=== PATIENT | female | born 1945 | race Caucasian/White ===

== ENCOUNTER → 2017-01-24 | Outpatient (CLI) | payer OTHER ==
[~2017-01-24] MED LIST: ACET325T30 PO; ASCO500T3 PO; ASPI-461 PO; CHOL20005 PO; LABE100T16 PO; LBT/100 PO; LEVE250T PO; LEVE500T13 PO; LEVO25TA5 PO; LORA-741 PO; MULTTAB58 PO; OMEG10007 PO; SERT50TA PO
[2017-01-24 18:15] LABS: BLOOD UREA NITROGEN 22 mg/dl (7-18); BUN/CREATININE RATIO 20.2 (10-20); CALCIUM 9.4 mg/dl (8.5-10.1); CARBON DIOXIDE 27 mmol/L (21-32); CHLORIDE 108 mmol/L (98-107); GLUCOSE 116 mg/dl (70-99); POTASSIUM 4.4 mmol/L (3.5-5.1); SODIUM 140 mmol/L (136-145)
[2017-01-24 18:18] LABS: CHOLESTEROL 273 mg/dl (0-200); CHOLESTEROL/HDL RATIO 5.9; HDL CHOLESTEROL 46 mg/dl; LDL CHOLESTEROL CALCULATED 185 mg/dl; TRIGLYCERIDES 210 mg/dl (0-150); VERY LOW DENSITY LIPOPROT CALC 42 mg/dl
== END | disposition home or self-care (01) ==
LOC: C.LABPVFM 13:36
PROVIDERS: ATTEND Nurse Practitioner
DX: I10 Essential (primary) hypertension (principal); E78.00 Pure hypercholesterolemia, unspecified

== ENCOUNTER → 2017-02-28 | Outpatient (CLI) | payer OTHER ==
--- NOTE | 2017-02-28 16:09 | MAMMOGRAPHY REPORT ---
BILATERAL DIGITAL SCREENING MAMMOGRAM WITH CAD: 02/28/2017 CLINICAL HISTORY: Routine screening. Patient has no complaints. TECHNIQUE: Bilateral CC, MLO and repeat left MLO views were obtained. Current study was also evaluat ed with a Computer Aided Detection (CAD) system. COMPARISON: No prior exams were available for comparison. BREAST COMPOSITION: The tissue of both breasts is heterogeneously dense, which may obscure small mas ses. 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 No suspicious spiculat ed or irregular mass, architectural distortion or cluster of suspicious microcalcifications is seen. IMPRESSION: ACR BI-RADS CATEGORY 1: NEGATIVE There is no mammographic evidence of malignancy. A 1 year screening mammogram is recommended. The pa tient will receive written notification of the results. Approximately 10% of breast cancers are not detected with mammography. A negative mammographic report should not delay biopsy if a clinically suggestive mass is present. Estefania Day M.D. ay/:02/28/2017 15:15:24 Manager Research: Clementine SALAZAR(R)(M), [facility] letter sent: Normal 1/2 BI-RADS Code: ACR BI-RADS Category 1: Negative
== END | disposition home or self-care (01) ==
LOC: C.MAMM 12:42
PROVIDERS: ATTEND Nurse Practitioner
DX: Z12.31 Encounter for screening mammogram for malignant neoplasm of breast (principal); M85.89 Other specified disorders of bone density and structure, multiple sites

== ENCOUNTER 2017-03-22 18:52 | Emergency (ER) | payer OTHER ==
[~2017-03-22] VITALS: Ht 167.6 cm; Wt 73.0 kg
[~2017-03-22 18:52] MED LIST changes: -LBT/100 PO; -LORA-741 PO; -OMEG10007 PO; -SERT50TA PO
[2017-03-22 18:55] VITALS: TEMP 36.6; Ht 167.6 cm; Wt 73.0 kg
--- NOTE | 2017-03-22 20:06 | EMERGENCY ROOM VISIT NOTE ---
History Report prepared by Fco: Ricky Flores Under the Supervision of: Dr. Soumya Inman M.D. First contact with patient: 19:52 Chief Complaint: OVERDOSE (ACCIDENTAL) Stated Complaint: TOOK TOO MANY PILLS-SYNTHROID, DEMENTIA PATIENT Nursing Triage Summary: pt's family member states "she got in to the pill box." reports that has a box with a weeks worth of pt's medications organized and gives pt all her pills. reprots that approx 1 hour ago it was discovered that pt had gotten into her box on her own, family member states "6 days are missing, but she said she threw some away, so there is a chance she didn't take anything." pt is status post stroke after attempted aneurysm repair earlier this year. upon assessment, pt is alert to self, family, and place. pt states it is april 2015 when asked about time. family reports hx of dementia. pt breathing WNL, lungs clear in all gee. pt states she has no complaints at this time. History of Present Illness The patient is a 71 year old female who presents to the Emergency Room with an accidental overdose that occurred 2 hours ago. This history is limited secondary to the patient's dementia. The patient has a past medical history of bilateral carotid aneurysms with the right one having ruptured. They attempted to repair it three separate times but failed. She also had a right MCA stroke as well. Usually, the patient's gives her her medications. However, the patient saw her pills on the table and thought she should take them. She also thought she should throw some away. She potentially could have taken/thrown away Zoloft, Keppra, Labetalol, Aspirin, and Synthroid. Her daughter states that she has a very hard time remembering things. The patient denies any abnormal symptoms. Source of History: patient, family, spouse/significant other History Limited By: dementia Onset: 2 hours ago Position: other (global) Symptom Intensity: mild Quality: other (Possible Overdose) Timing: constant Note: She denies any abnormal symptoms. Review of Systems ROS is limited secondary to the patient's dementia. Past Medical & Surgical Medical Problems: (1) Acute right MCA stroke (2) Anxiety (3) Carotid aneurysm, left (4) Carotid aneurysm, right (5) Chest pain Family History Omitted secondary to the patient's age. Social History Smoking Status: Never Smoker Smokeless Tobacco Use: No Drug Use: none Marital Status: Housing Status: lives with family Occupation Status: retired Current/Historical Medications Scheduled Ascorbic Acid (Vitamin C), 1 TAB PO DAILY Aspirin (Aspirin), 81 MG PO DAILY Cholecalciferol (Vitamin D3), 1 TAB PO BID Fish Oil (Castana-3), 1 CAP PO TID Labetalol Hcl (Normodyne), 50 MG PO BID Levetiracetam (Keppra), 250 MG PO BID Levothyroxine Sodium (Levothyroxine Sodium), 1 TAB PO DAILY Multiple Vitamin (Multivitamin), 1 TAB PO BID Sertraline (Zoloft), 50 MG PO QAM Scheduled PRN Lorazepam (Ativan), 0.5 MG PO DAILY PRN for Anxiety Allergies Coded Allergies: Clindamycin (Verified Allergy, Mild, RASH, 03/22/17) Heparin (Verified Allergy, Mild, RASH, 03/22/17) Sulfa Antibiotics (Verified Allergy, Mild, RASH, 03/22/17) Uncoded Allergies: STATIN MED (Allergy, Mild, 02/16/08) Physical Exam Vital Signs Date Time Temp Pulse Resp B/P (MAP) Pulse Ox O2 Delivery O2 Flow Rate FiO2 03/22/17 20:47 79 18 173/91 94 03/22/17 19:07 72 03/22/17 18:55 36.6 72 18 163/75 95 Room Air Physical Exam Vital signs reviewed. General: Well-appearing elderly female, in no significant distress. HEENT: No scleral icterus, PERRLA, neck supple. Atraumatic. Cardiovascular: Regular rate and rhythm, no extra sounds. Pulmonary: Clear to auscultation bilaterally, normal work of breathing. Abdomen: Soft, nontender, nondistended, positive bowel sounds. Musculoskeletal: Atraumatic, no peripheral edema. Neurologic: Patient awake alert and pleasantly confused, able to follow commands , full strength in all 4 extremities. Cranial nerves 2 through 12 grossly intact. Skin: Warm, dry, no rash Medical Decision & Procedures ECG Indication: toxicologic Rate (beats per minute): 77 Rhythm: normal sinus Findings: RBBB (incomplete), other (Unusual P-wave axis in the anterior leads, QTC 493, LVH) ED Course 1951: Past medical records reviewed. The patient was evaluated in room A3. A complete history and physical examination was performed. 2041: Upon reevaluation, the patient appeared to have improvement of her symptoms. I discussed findings with her family. They verbalized agreement of the treatment plan. She was discharged home. Medical Decision Differential diagnosis: Etiologies such as toxicologic, infection, hypoglycemia, electrolyte abnormalities, cardiac sources, intracerebral event, neurologic, as well as others were entertained. This patient was evaluated and appeared to be in no distress. Patient's EKG was performed and reveals a slightly prolonged QT interval. The patient appears to be at her baseline mental status. She believes she threw pills away. Her states that at most she would've taken 1 dose of each pill. Nursing staff contacted poison control and they do not feel there is any specific concern. After discussing the option of several hours of monitoring in the ER, the family decided they would prefer to take her home. I believe it is safe at this point. They're instructed to return to the ER for altered mental status, vomiting or any medical concerns. Medication Reconcilliation Current Medication List: was personally reviewed by me Blood Pressure Screening Patient's blood pressure: Elevated blood pressure Blood pressure disposition: Elevated BP felt to be situational Impression Primary Impression: Accidental medication overdose Scribe Attestation The scribe's documentation has been prepared under my direction and personally reviewed by me in its entirety. I confirm that the note above accurately reflects all work, treatment, procedures, and medical decision making performed by me. Departure Information Dispostion Home / Self-Care Referrals Wanda Connolly C.R.N.P (PCP) Forms HOME CARE DOCUMENTATION FORM, IMPORTANT VISIT INFORMATION, WORK / SCHOOL INSTRUCTIONS Patient Instructions My [facility] Additional Instructions Diagnosis: Accidental medication overdose Keep medications away from the patient, supervise medication administration. Return to the ED for worsening of symptoms or any medical concerns. Problem Qualifiers Primary Impression: Accidental medication overdose Encounter type: initial encounter Qualified Codes: T50.901A - Poisoning by unspecified drugs, medicaments and biological substances, accidental ( unintentional), initial encounter
[2017-03-22] MEDS ORDERED: LBT/100 PO (20:07)
[2017-03-22] MEDS ORDERED: OMEG10007 PO (20:12)
[2017-03-22] MEDS ORDERED: SERT50TA PO (20:13)
[2017-03-22] MEDS ORDERED: LORA-741 PO (20:14)
[2017-03-22 20:47] VITALS: BP 173/91; PULSE 79; O2SAT 94
== END 2017-03-22 20:47 | disposition home or self-care (01) ==
LOC: C.EDB 18:54 → C.EDA 20:47
DX: T50.901A Poisoning by unspecified drugs, medicaments and biological substances, accidental (unintentional), initial encounter (principal); X58.XXXA Exposure to other specified factors, initial encounter; F41.9 Anxiety disorder, unspecified; I45.10 Unspecified right bundle-branch block; Z86.73 Personal history of transient ischemic attack (TIA), and cerebral infarction without residual deficits; Z79.82 Long term (current) use of aspirin

== ENCOUNTER → 2017-06-23 | Outpatient (CLI) | payer OTHER ==
[~2017-06-23] MED LIST changes: -ACET325T30 PO; -LABE100T16 PO; +LBT/100 PO; -LEVE500T13 PO; +LORA-741 PO; +OMEG10007 PO; +SERT50TA PO
== END | disposition home or self-care (01) ==
LOC: C.LABPVFM 09:56
PROVIDERS: ATTEND Nurse Practitioner
DX: N39.0 Urinary tract infection, site not specified (principal); R32 Unspecified urinary incontinence

== ENCOUNTER → 2017-09-13 | Outpatient (CLI) | payer BC ==
--- NOTE | 2017-09-13 16:24 | DIAGNOSTIC IMAGING REPORT ---
CHEST 2 VIEWS ROUTINE HISTORY: COUGH COMPARISON: Chest 12/05/2015. FINDINGS: There are postoperative changes and an aortic valve prosthesis. The heart is stable in size. No focal lung consolidations to suggest pneumonia. No evidence for pulmonary edema. No pleural effusions. No pneumothorax. Mild superior endplate compression deformity at L1. This is likely old. IMPRESSION: No acute process. Electronically signed by: Walter Chilel M.D. 09/13/2017 4:23 PM Dictated Date/Time: 09/13/2017 4:20 PM
== END | disposition home or self-care (01) ==
LOC: C.RAD1850 16:05
PROVIDERS: ATTEND Nurse Practitioner Family
DX: R05 Cough (principal); R53.83 Other fatigue